=== PATIENT | male | born 1975 | race Caucasian/White ===

== ENCOUNTER 2020-07-04 13:57 | Outpatient (RCR) | payer OTHER, SELFPAY | END 2020-09-16 23:59 | LOC: IMMUN 13:57 | PROVIDERS: Visit Provider Family Medicine | DX: Z23 Encounter for immunization (principal) | CPT/HCPCS: 0001A; 0002A; 91300 ==

== ENCOUNTER → 2021-02-18 09:50 | Outpatient (CLI) | payer OTHER, SELFPAY ==
[2021-02-18 12:16] LABS: Absolute Lymphocyte Count 1.38 X10^3/uL (0.83-4.51); Basophil# 0.04 X10^3/uL; Basophil% 0.6 % (0-1); Eosinophil# 0.09 X10^3/uL; Eosinophils% 1.5 % (0-5); Hematocrit 47.8 % (40-54); Hemoglobin 16.3 g/dL (13.0-16.5); Lymphocyte # 1.38 X10^3/ul (0.83-4.51); Lymphocyte % 22.4 % (19-41); Mean Corp Hgb Conc 34.1 g/dL (32-36); Mean Corpuscular Hgb 29.7 pg (27.0-32.0); Mean Corpuscular Volume 87.2 fL (80-94); Mean Platelet Vol. 9.5 fl (6.2-12.0); Monocyte# 0.63 X10^3/uL; Monocyte% 10.2 % (0-10); NRBC Flagged by Analyzer 0 % (0-5); Neutrophil # 4.01 X10^3/uL (2.7-7.7); Platelet Count 300 K/mm3 (150-450); RBC Distribution Width CV 12.2 % (11.6-14.6); RBC Distribution Width SD 38.9 fl (35.1-43.9); Red Blood Count 5.48 M/mm3 (4.6-6.2); White Blood Count 6.2 K/mm3 (4.4-11.0)
[2021-02-18 13:10] LABS: AST(SGOT) 19 U/L (15-37); Alanine Aminotransfer ALT/SGPT 41 U/L (16-61); Albumin, Serum 3.7 g/dL (3.2-5.0); Alkaline Phosphatase 61 U/L (45-117); Anion Gap 7 (5-15); BUN 12 mg/dL (7-18); BUN/Creat Ratio 15.5 RATIO (10-20); Calcium,Total 9.2 mg/dL (8.5-10.1); Chloride 105 mmol/L (98-107); Cholesterol 102 mg/dL (200); Creatinine, Serum 0.77 mg/dL (0.70-1.30); EST Glomerular Filtration Rate 116 mL/min (>60); Est Glom Filt Rate - Afr Amer 140 mL/min (>60); Globulin 3.7 g/dL (2.2-4.2); Glucose 86 mg/dL (74-106); High Density Lipoprotein 41 mg/dL; PSA,Total - Annual Screen 0.72 ng/mL (0.00-4.00); Potassium 4.1 mmol/L (3.5-5.1); Protein, Total 7.4 g/dL (6.4-8.2); Sodium Level 138 mmol/L (136-145); Triglycerides 115 mg/dL; Very Low Density Lipoprotein 23 mg/dL (5-40)
== END ==
PROVIDERS: PCP Internal Medicine; Referring Provider Internal Medicine; Visit Provider Internal Medicine
DX: E78.5 Hyperlipidemia, unspecified (principal); E55.9 Vitamin D deficiency, unspecified; Z12.5 Encounter for screening for malignant neoplasm of prostate
CPT/HCPCS: 36415; 80053; 80061; 82306; 84153; 85025; G0103

== ENCOUNTER 2021-12-04 07:47 | Day surgery (SDC) | payer OTHER, SELFPAY ==
[2021-12-04 08:15] VITALS: BP 138/86; PULSE 64; RESP 16; TEMP 36.4; O2SAT 97; BMI 29.9
[2021-12-04] MEDS: Lactated Ringers 1,000 ML 15 ML IV (08:17)
[2021-12-04 08:55] VITALS: BP 108/60; BP 138/86; PULSE 71; RESP 16; TEMP 36.5; O2SAT 93
--- NOTE | 2021-12-04 08:56 | OP.COLON_ITS ---
Patient Name: Adrian Garcia Procedure Date: 12/04/2021 8:31 AM Date of : 1975 Age: 46 Procedure: Colonoscopy Indications: High risk colon cancer surveillance: Personal history of colonic polyps, Family history of colon cancer in a first-degree relative Providers: Nacho Basilio MD Medicines: Monitored Anesthesia Care Patient Profile: This is a 46 year old male. Refer to note in patient chart for documentation of history and physical. Last Colonoscopy: 5 years ago. Complications: No immediate complications. Procedure: Pre-Anesthesia Assessment: - Prior to the procedure, a History and Physical was performed, and patient medications and allergies were reviewed. The patient's tolerance of previous anesthesia was also reviewed. The risks and benefits of the procedure and the sedation options and risks were discussed with the patient. All questions were answered, and informed consent was obtained. Prior Anticoagulants: The patient has taken no previous anticoagulant or antiplatelet agents. After reviewing the risks and benefits, the patient was deemed in satisfactory condition to undergo the procedure. After I obtained informed consent, the scope was passed under direct vision. Throughout the procedure, the patient's blood pressure, pulse, and oxygen saturations were monitored continuously. The colonoscope was introduced through the anus and advanced to the cecum, identified by appendiceal orifice and ileocecal valve. The colonoscopy was performed without difficulty. The patient tolerated the procedure well. The quality of the bowel preparation was good. Scope In: 8:40:04 AM Scope Withdrawal Time 0 hours 6 minutes 13 seconds Scope Out: 8:51:20 AM Total Procedure Duration Time 0 hours 11 minutes 16 seconds Findings: The entire examined colon appeared normal on direct and retroflexion views. Impression: - The entire examined colon is normal on direct and retroflexion views. - No specimens collected. Recommendation: - Discharge patient to home. - Resume previous diet. - Continue present medications. - Repeat colonoscopy in 5 years for screening purposes. Procedure Code(s): --- Professional --- 50322, Colonoscopy, flexible; diagnostic, including collection of specimen(s) by brushing or washing, when performed (separate procedure) Diagnosis Code(s): --- Professional --- Z86.010, Personal history of colonic polyps Z80.0, Family history of malignant neoplasm of digestive organs CPT copyright 2017 [employer]. All rights reserved. The codes documented in this report are preliminary and upon hide salter review may be revised to meet current compliance requirements. Nacho Basilio MD 12/04/2021 8:55:54 AM This report has been signed electronically. Number of Addenda: 0 Note Initiated On: 12/04/2021 8:31 AM
--- NOTE | 2021-12-04 08:57 | OP.CCLET_ITS ---
12/04/2021 Ester Mendoza [facility] [address] [place] [address] Re : Colonoscopy procedure for Adrian Garcia Dear Dr. Mendoza This procedure was performed on Saturday, December 04, 2021. My impressions and recommendations are as follows: Impressions : - The entire examined colon is normal on direct and retroflexion views. - No specimens collected. Recommendations : - Discharge patient to home. - Resume previous diet. - Continue present medications. - Repeat colonoscopy in 5 years for screening purposes. My findings are described in the full procedure note, which is enclosed. If I can be of further assistance, please feel free to contact me at Doctor phone number(s): , Work: . Sincerely, Nacho Basilio MD 12/04/2021 8:55:54 AM This report has been signed electronically.
--- NOTE | 2021-12-04 08:59 | HP.PCM_ITS ---
HPI - General HPI Narrative JEFFREY BIRD, is a 46 M who presents for surveillance colonoscopy. The patient had a colonoscopy about 5 years ago and 1 polyp was identified and removed. Patient also says that he has family history of colon cancer in his father. Patient denies any abdominal pain or blood in the stool. [facility] Medical History (Updated 12/01/21 @ 13:24 by Sue Suresh) Back problem Hyperlipemia Non-smoker Wears glasses Home Medications aspirin 81 mg tablet,delayed release 81 mg PO DAILY 02/11/21 [History Last Taken Unknown] atorvastatin 80 mg tablet 80 mg PO QHS 02/11/21 [History Last Taken Unknown] multivitamin 1 tab PO DAILY 12/01/21 [History Last Taken Unknown] Allergy/AdvReac Type Severity Reaction Status Date / Time No Known Allergies Allergy Verified 12/04/21 08:14 Family History Father Colon cancer Myocardial infarction Hypertension Grandfather Myocardial infarction Surgical History History of colonoscopy History of hernia repair Hx of detached retina repair Social History Smoking Status: Never smoker alcohol intake: never substance use type: does not use what type of physical activity do you participate in: walking and weight training frequency: 5-6 times per week Past Medical/Surgical History Planned Operation Planned Operative Procedure/s: colonoscopy Previous Hospitalizations/Surgeries HX Hospitalizations: No Any Problems With Anesthesia: No You/Your Family Experience Fever (Hyperthermia) With Anes: No Cholinesterase deficiency: No Cardiovascular Hx Hypertension: No HX Edema: No Respiratory Hx Sleep Apnea: No Hx Respiratory Tract Infection/Cold (presently): No Do You Snore Loudly (louder than talking or can be heard): No Do You Often Feel Tired/ Fatigued/ Sleepy Dring Daytime?: No Has Anyone Observed You Stop Breathing During Sleep?: No Result (for STOP score): Negative Smoking Status: Never smoker Neurological Does patient have nerve stimulator: No Miscellaneous Recent Exposure to Contagious Disease: No Allergies No Known Allergies Allergy (Verified 12/04/21 08:14) Discharge Is Pt Admitted From a Longterm, or a Senior Living: No Who Could Help: After D/C, Where Do you Plan to Go: Return Home Vital Signs Vital Signs Vital Signs: 12/04/21 08:15 12/04/21 08:15 12/04/21 08:55 Temperature 97.5 F L 97.7 F L Temperature Source Temporal Temporal Pulse Rate 64 71 Respiratory Rate 16 16 Respiratory Pattern Normal Normal Blood Pressure 138/86 H 108/60 Blood Pressure Mean 103 76 Blood Pressure Source Monitor Monitor Blood Pressure Position Semi-Fowlers Semi-Fowlers Blood Pressure Location Left Arm Right Arm Baseline BP 138/86 Pulse Ox 97 93 Oxygen Delivery Method Room Air Room Air Weight Weight: 227 lb 1.218 oz Body Mass Index (BMI) 29.9 Physical Exam Const alert and oriented x3 Resp normal respiratory effort and normal air movement Cardio regular rate and regular rhythm GI soft to palpation, non-tender and non-distended Assessment & Plan Assessment/Plan (1) History of colon polyps: PLAN: Plan Patient has a history of colon polyp 5 years ago and a history of colon cancer in his father. I explained endoscopy in detail to the patient. I explained the risks including but not limited to stroke or heart attack with anesthesia, perforation of the GI tract, bleeding, infection. I explained that any of these could necessitate further emergency surgery. The patient understands and all questions were answered sufficiently. The patient wishes to proceed with procedure. Nacho Basilio MD Pager: [facility] [address] [place] [address], [address] [place] [address] Office: Surgery Risks - Colonoscopy Risks Include but are not Limited To: Risks include but are not limited to: Bleeding, perforation requiring further surgery, inability to complete colonoscopy requiring barium enema.
[2021-12-04 09:00] VITALS: BP 138/86; BP 91/63; PULSE 69; RESP 16; O2SAT 95
[2021-12-04 09:05] VITALS: BP 113/79; BP 138/86; PULSE 68; RESP 16; O2SAT 96
[2021-12-04 09:09] VITALS: BP 105/76; BP 138/86; PULSE 67; RESP 16; TEMP 36.8; O2SAT 95
[2021-12-04 09:31] VITALS: BP 138/86
== END 2021-12-04 09:43 | disposition home or self-care (01) ==
LOC: EN 07:56 → AC 07:57
PROVIDERS: PCP Internal Medicine; Referring Provider Surgery; Visit Provider Surgery
PROC: 0DJD8ZZ Inspection of Lower Intestinal Tract, Via Natural or Artificial Opening Endoscopic (ICD-10-PCS; CPT 45378; principal; 2021-12-04 08:40)
DX: Z12.11 Encounter for screening for malignant neoplasm of colon (principal); E78.5 Hyperlipidemia, unspecified; Z79.82 Long term (current) use of aspirin; Z79.899 Other long term (current) drug therapy; Z86.010 Personal history of colon polyps; Z80.0 Family history of malignant neoplasm of digestive organs
CPT/HCPCS: 45378; J7120; J2405

== ENCOUNTER → 2022-03-15 | Outpatient (CLI) | payer OTHER, SELFPAY ==
[2022-03-15 09:30] LABS: Absolute Lymphocyte Count 1.29 X10^3/uL (0.83-4.51); Absolute Neutrophil Count 3.6 X10^3/uL (2.0-7.7); Basophil# 0.04 X10^3/uL; Basophil% 0.7 % (0-1); Eosinophils% 1.8 % (0-5); Hematocrit 46.4 % (40-54); Hemoglobin 15.2 g/dL (13.0-16.5); Lymphocyte # 1.29 X10^3/ul (0.83-4.51); Mean Corp Hgb Conc 32.8 g/dL (32-36); Mean Corpuscular Volume 88.4 fL (80-94); Mean Platelet Vol. 9.7 fl (6.2-12.0); Monocyte% 10.7 % (0-10); NRBC Flagged by Analyzer 0 % (0-5); Neutrophil # 3.57 X10^3/uL (2.7-7.7); Neutrophil % 63.6 % (47-70); Platelet Count 299 K/mm3 (150-450); RBC Distribution Width CV 12.7 % (11.6-14.6); RBC Distribution Width SD 41.1 fl (35.1-43.9); Red Blood Count 5.25 M/mm3 (4.6-6.2); White Blood Count 5.6 K/mm3 (4.4-11.0)
[2022-03-15 10:13] LABS: ALB/GLOB Ratio 1.2 RATIO (0.9-2.4); AST(SGOT) 16 U/L (15-37); Alanine Aminotransfer ALT/SGPT 31 U/L (16-61); Albumin, Serum 3.8 g/dL (3.2-5.0); Alkaline Phosphatase 54 U/L (45-117); Anion Gap 4 (5-15); BUN 18 mg/dL (7-18); BUN/Creat Ratio 24.9 RATIO (10-20); Calcium,Total 8.9 mg/dL (8.5-10.1); Chloride 107 mmol/L (98-107); Cholesterol 117 mg/dL (200); Creatinine, Serum 0.72 mg/dL (0.70-1.30); EST Glomerular Filtration Rate 124 mL/min (>60); Est Glom Filt Rate - Afr Amer 150 mL/min (>60); Globulin 3.1 g/dL (2.2-4.2); Glucose 96 mg/dL (74-106); High Density Lipoprotein 43 mg/dL; Potassium 3.7 mmol/L (3.5-5.1); Protein, Total 6.9 g/dL (6.4-8.2); Sodium Level 139 mmol/L (136-145); Triglycerides 93 mg/dL; Very Low Density Lipoprotein 19 mg/dL (5-40)
== END | disposition home or self-care (01) ==
LOC: LAB 08:50
PROVIDERS: PCP Internal Medicine; Referring Provider Internal Medicine; Visit Provider Internal Medicine
DX: Z00.00 Encounter for general adult medical examination without abnormal findings (principal); E55.9 Vitamin D deficiency, unspecified; E78.5 Hyperlipidemia, unspecified; Z86.69 Personal history of other diseases of the nervous system and sense organs; Z98.890 Other specified postprocedural states; Z12.5 Encounter for screening for malignant neoplasm of prostate
CPT/HCPCS: 36415; 80053; 80061; 84153; 85025; G0103

== ENCOUNTER → 2023-01-28 | Outpatient (CLI) | payer OTHER, SELFPAY ==
[2023-01-28 07:20] LABS: AST(SGOT) 17 U/L (15-37); Alanine Aminotransfer ALT/SGPT 29 U/L (16-61); Alkaline Phosphatase 54 U/L (45-117); Bilirubin, Direct 0.21 mg/dL (0.00-0.30); Cholesterol 70 mg/dL (200); High Density Lipoprotein 35 mg/dL; Triglycerides 62 mg/dL; Very Low Density Lipoprotein 12 mg/dL (5-40)
== END | disposition home or self-care (01) ==
PROVIDERS: PCP Internal Medicine
DX: E78.5 Hyperlipidemia, unspecified (principal)
CPT/HCPCS: 36415; 80061; 80076

== ENCOUNTER → 2023-03-17 | Outpatient (CLI) | payer OTHER, SELFPAY ==
[2023-03-17 09:21] LABS: Absolute Lymphocyte Count 1.09 X10^3/uL (0.83-4.51); Absolute Neutrophil Count 5.1 X10^3/uL (2.0-7.7); Basophil# 0.04 X10^3/uL; Basophil% 0.6 % (0-1); Eosinophil# 0.06 X10^3/uL; Eosinophils% 0.9 % (0-5); Hematocrit 46.5 % (40-54); Hemoglobin 15.1 g/dL (13.0-16.5); Lymphocyte # 1.09 X10^3/ul (0.83-4.51); Lymphocyte % 15.5 % (19-41); Mean Corp Hgb Conc 32.5 g/dL (32-36); Mean Corpuscular Hgb 29.4 pg (27.0-32.0); Mean Corpuscular Volume 90.6 fL (80-94); Mean Platelet Vol. 9.5 fl (6.2-12.0); Monocyte# 0.71 X10^3/uL; Monocyte% 10.1 % (0-10); NRBC Flagged by Analyzer 0 % (0-5); Neutrophil # 5.12 X10^3/uL (2.7-7.7); Neutrophil % 72.8 % (47-70); Platelet Count 289 K/mm3 (150-450); RBC Distribution Width CV 12.9 % (11.6-14.6); RBC Distribution Width SD 42.6 fl (35.1-43.9); Red Blood Count 5.13 M/mm3 (4.6-6.2)
[2023-03-17 10:00] LABS: Vitamin D,25 Hydroxy 50.9 ng/mL
[2023-03-17 10:04] LABS: ALB/GLOB Ratio 1.2 RATIO (0.9-2.4); AST(SGOT) 17 U/L (15-37); Alanine Aminotransfer ALT/SGPT 30 U/L (16-61); Albumin, Serum 3.9 g/dL (3.2-5.0); Alkaline Phosphatase 59 U/L (45-117); Anion Gap 3 (5-15); BUN 16 mg/dL (7-18); BUN/Creat Ratio 20.6 RATIO (10-20); Calcium,Total 9.1 mg/dL (8.5-10.1); Chloride 106 mmol/L (98-107); Creatinine, Serum 0.78 mg/dL (0.70-1.30); EST Glomerular Filtration Rate 114 mL/min (>60); Est Glom Filt Rate - Afr Amer 138 mL/min (>60); Globulin 3.2 g/dL (2.2-4.2); Glucose 87 mg/dL (74-106); Potassium 3.9 mmol/L (3.5-5.1); Protein, Total 7.1 g/dL (6.4-8.2); Sodium Level 140 mmol/L (136-145); Thyroid Stim Hormone (TSH) 1.35 uIU/mL (0.358-3.74)
== END | disposition home or self-care (01) ==
LOC: LAB 08:58
PROVIDERS: PCP Internal Medicine; Referring Provider Internal Medicine; Visit Provider Internal Medicine
DX: Z00.00 Encounter for general adult medical examination without abnormal findings (principal); E55.9 Vitamin D deficiency, unspecified; Z12.5 Encounter for screening for malignant neoplasm of prostate
CPT/HCPCS: 36415; 80053; 82306; 84153; 84443; 85025; G0103